=== PATIENT | female | born 1960 | race Caucasian/White ===

== ENCOUNTER 2022-07-13 08:45 | Outpatient (RCR) | payer OTHER | END 2022-07-14 | disposition home or self-care (01) | LOC: ONC 08:45 | PROVIDERS: ATTEND Radiology Radiation Oncology | DX: Z51.0 Encounter for antineoplastic radiation therapy (principal); C79.81 Secondary malignant neoplasm of breast; C50.911 Malignant neoplasm of unspecified site of right female breast | CPT/HCPCS: 77300; 77301; 77334; 77338; 77370; 77373; 77470; 99205 ==

== ENCOUNTER 2022-07-27 08:33 | Outpatient (RCR) | payer OTHER | END 2022-08-14 | disposition home or self-care (01) | LOC: ONC 08:33 | PROVIDERS: ATTEND Radiology Radiation Oncology | DX: Z51.0 Encounter for antineoplastic radiation therapy (principal); C50.911 Malignant neoplasm of unspecified site of right female breast | CPT/HCPCS: 77336; 77373 ==